=== PATIENT | female | born 1950 | race Caucasian/White ===

== ENCOUNTER 2017-08-24 13:52 | Emergency (ER) | payer MEDICARE, OTHER ==
[~2017-08-24] VITALS: Ht 154.9 cm; Wt 95.3 kg
[~2017-08-24 13:52] MED LIST: ANTIVERT25 MG PO; CALCIUM 600 +1 EAC4 PO; FLONASE 0.05%50 MCG NASAL; MAXZIDE-25 MG1 EACH PO; ONDANSETRON HCL4 M2 PO; TENORMIN25 MG PO; TENORMIN50 MG PO; TRANSDERM-SCO1 PATC1 TD; VITAMIN D3 COM1 EACH PO; WAL-ZYR D TABL1 EACH PO
[2017-08-24 15:30] VITALS: BP 151/86
== END 2017-08-24 15:34 | disposition home or self-care (01) ==
LOC: M.ERS 13:52
DX: M25.561 Pain in right knee (principal); I10 Essential (primary) hypertension; Z88.8 Allergy status to other drugs, medicaments and biological substances

== ENCOUNTER 2020-02-09 12:54 | Emergency (ER) | payer MEDICARE, OTHER ==
[~2020-02-09] VITALS: Ht 157.5 cm; Wt 93.0 kg
[2020-02-09] MEDS ORDERED: NORCO 5-325 TA1 EAC1 PO (14:38)
[2020-02-09 14:46] VITALS: BP 154/70
== END 2020-02-09 14:46 | disposition home or self-care (01) ==
LOC: M.ERS 12:54
DX: S92.511A Displaced fracture of proximal phalanx of right lesser toe(s), initial encounter for closed fracture (principal); I10 Essential (primary) hypertension; Z88.8 Allergy status to other drugs, medicaments and biological substances; W01.0XXA Fall on same level from slipping, tripping and stumbling without subsequent striking against object, initial encounter; Y93.89 Activity, other specified; Y92.89 Other specified places as the place of occurrence of the external cause; Y99.8 Other external cause status